=== PATIENT | male | born 1925 | race Caucasian/White ===

== ENCOUNTER 2017-02-27 15:45 | Inpatient (IN) | payer MEDICARE ==
[2017-02-27 16:15] LABS: #Eosinphils 0.1 thou/uL (0.0-0.7); #Lymphocytes 1.2 thou/uL (1.20-3.40); #Monocytes 0.7 thou/uL (0.11-0.59); #Neutrophils 4.6 thou/uL (1.40-6.50); %Basophils 0.7 % (0.0-1.0); %Eosinophils 1.7 % (0.0-10.0); %Lymphocytes 18.4 % (21.0-51.0); Hematocrit 41.2 % (42.0-52.0); Mean Platelet Volume 9.6 fL (7.4-10.4); White Blood Cell (WBC) Count 6.6 thou/uL (4.8-10.8)
[2017-02-27 16:29] LABS: Prothrombin Time 13.4 SEC (12.0-14.7)
[2017-02-27 16:44] LABS: Troponin I Less than 0.010 ng/mL (< 0.028)
[2017-02-27] MEDS ORDERED: Ondansetron ODT 4 MG TAB PO PRN (18:50)
[2017-02-27] MEDS ORDERED: hydrALAZINE 20 MG/ML VIAL SLOW IVP PRN (18:50)
[2017-02-27] MEDS ORDERED: Dextrose 5% in Water 1,000 ML IV PRN (18:50)
[2017-02-27] MEDS ORDERED: Acetaminophen 500 MG TAB PO PRN (18:50)
[2017-02-27] MEDS ORDERED: cloNIDine 0.1 MG TAB PO PRN (18:50)
[2017-02-27] MEDS ORDERED: HumaLOG 300 UNITS/3 ML VIAL SC PRN (18:50)
[2017-02-27] MEDS ORDERED: Dextrose 50% Abboject 50 ML SYRINGE SLOW IVP PRN (18:50)
[2017-02-27] MEDS ORDERED: Ondansetron HCl/PF 4 MG/2 ML Vial IVP PRN (18:50)
[2017-02-27 19:20] VITALS: BMI 27.0
[2017-02-27 19:41] LABS: Troponin I 0.012 ng/mL (< 0.028)
--- NOTE | 2017-02-27 20:16 | HP ---
DATE OF ADMISSION: 02/27/2017 PRIMARY CARE PHYSICIAN: Suhail Ragsdale MD CHIEF COMPLAINT: Blood in the stool. HISTORY OF PRESENT ILLNESS: This is an 89-year-old male, who presents to [facility] in transfer from [facility] in [place] after presenting with compl aints of blood in the stool. The patient admits to a history of antral erosions previously as well as a history of GI bleed that was suspected secondarily to colon polyps. The patient states he unde rwent EGD and colonoscopy in the last 2 to 3 years, undergoing polypectomies. The patient does admi ts to using Plavix on a daily basis, but is currently on half a tablet. The patient denied any othe r anticoagulation exposure history, fever, chills, or diarrhea. The patient noted dark blood in the stool, but not black in color. The patient states he had some constipation with hard bowel movemen ts within the last 24 to 48 hours as well as a coughing episode. The patient states he initially no vinay the blood in the stool within the last 3 days intermittently with bowel movements. The patient denied any syncope, chest pain, shortness of breath or dysuria. In the emergency room, the patient underwent general evaluation including metabolic screening with hemoglobin of 13.6. Review of the [facility] medical record shows prior value of 13.4 on 05/26/2015. The patient was referred to the ospitalist Service for evaluation. PAST MEDICAL HISTORY: 1. Prostate cancer. 2. History of cerebrovascular accident with right-sided weakness, none currently. 3. Coronary artery disease, chronic and stable. 4. History of upper gastrointestinal bleed in 2009 with small antral erosion. 5. History of colon polyps, status post polypectomy. 6. Gastroesophageal reflux. 7. Chronic kidney disease, stage 2. 8. Hypertension. 9. Diabetes mellitus type 2. PAST SURGICAL HISTORY: 1. Status post bilateral carpal tunnel release. 2. Status post appendectomy. 3. Status post bilateral cataract surgery. 4. Status post EGD in 2009 with small antral erosion. 5. Status post EGD and colonoscopy, status post polypectomy. CURRENT MEDICATIONS: Unavailable, currently will be reviewed with the family and patient upon arriv al to the medical floor. ALLERGIES: No known drug allergies. FAMILY HISTORY: No inheritable diseases per patient report. SOCIAL HISTORY: The patient is , residing in [place], [place]. [employer] . No cur rent alcohol, tobacco or illicit drug use. 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 REVIEW OF SYSTEMS: The following complete review of systems was negative, unless otherwise mentione d in the HPI or below: Constitutional: Weight loss or gain, ability to conduct usual activities. Skin: Rash, itching. Eyes: Double vision, pain. ENT/Mouth: Nose bleeding, neck stiffness, pain, tenderness. Cardiovascular: Palpitations, dyspnea on exertion, orthopnea. Respiratory: Shortness of breath, wheezing, cough, hemoptysis, fever or night sweats. Gastrointestinal: Poor appetite, abdominal pain, heartburn, nausea, vomiting, constipation, or diar myah. Genitourinary: Urgency, frequency, dysuria, nocturia. Musculoskeletal: Pain, swelling. Neurologic/Psychiatric: Anxiety, depression. Allergy/Immunologic: Skin rash, bleeding tendency. Otherwise, negative except as stated per HPI. PHYSICAL EXAMINATION: VITAL SIGNS: On admission, blood pressure 139/69, pulse 81, respiratory rate 20, temperature 97.6 d egrees Fahrenheit, O2 saturation 98% on room air. GENERAL APPEARANCE: This is an 89-year-old male, alert and oriented x3, pleasant, convers ant, in no acute distress. HEENT: Pupils are equal, round, and reactive to light and accommodation. Extraocular muscles are i ntact. No scleral icterus, no conjunctival injection. Nares patent. OP is clear. Teeth in good r epair. NECK: Supple, no cervical adenopathy, no thyromegaly, no carotid bruits, no JVD appreciated. Cervi enrrique spine is with full active and passive range of motion. No meningeal signs appreciated. CHEST: Lungs are clear to auscultation bilaterally. CARDIOVASCULAR: S1, S2 with irregular rate and rhythm. ABDOMEN: Rounded, soft, nontender, nondistended. Bowel sounds are positive in all four quadrants. There is no hepatosplenomegaly, no abdominal bruits, no rebound or guarding appreciated. EXTREMITIES: Warm and dry with good turgor. No clubbing, cyanosis or asymmetric edema appreciated. Pulses palpable distally at the dorsalis pedis, posterior tibial, and popliteal arteries bilateral ly. Capillary refill is less than 2 seconds. NEUROLOGIC: Cranial nerves II through XII are grossly intact. No focal or lateralizing signs appre ciated. PERTINENT LABORATORY AND X-RAY FINDINGS: Sodium 141, potassium 5.0, chloride 106, CO2 of 25, anion gap 15, BUN 36, creatinine 1.73 with estimated GFR of 37, glucose 185, calcium is 9.8. LFTs are wit hin normal limits. Troponin negative x1. Albumin is 3.8. CBC showed a white blood cell count 6.6, hemoglobin 13.6, hematocrit 41.2, and platelet count 131 with normal differential. PT 13.4, INR 1. 0, PTT 32.0. EKG dated 02/27/2017 by my interpretation shows atrial fibrillation with heart rate in the 80s. Normal R-wave progression noted in the precordial leads. Normal axis. No acute ST-T wav e changes appreciated. ASSESSMENT AND PLAN: 1. Gastrointestinal bleed. Unclear if upper or lower source. We will continue serial hemoglobin a nd hematocrit monitoring. Protonix 40 mg p.o. daily. We will consult Gastroenterology Service give n patient's history of prior gastrointestinal bleeding in the past. The patient may deem an appropr iate candidate for esophagogastroduodenoscopy/colonoscopy. Continue intravenous normal saline at 75 mL per hour. Avoid aspirin, Plavix, and anticoagulants. 2. Acute kidney injury on chronic kidney disease, stage 3-4. We will continue intravenous normal s long as outlined in #1. Avoid nephrotoxic agents and contrast media. Repeat creatinine in the a.m . 3. Chronic atrial fibrillation with controlled ventricular rate. We will continue supportive measu res. Continue telemetry monitoring. 4. Diabetes mellitus type 2. Insulin sliding scale for reflexive coverage. ADA diet. Accu-Cheks before meals and at bedtime. Confirm home diabetic regimen. 5. Chronic normocytic anemia. Stable currently. We will continue serial hemoglobin and hematocrit monitoring and trend. Repeat CBC in the a.m. 6. Prophylaxis. Sequential compression devices while in bed. Protonix 40 mg p.o. q.24 hours. 7. Code status is FULL. Surrogate medical decision maker is patient's spouse.
[2017-02-27] MEDS: Sodium Chloride 0.9% 1,000 ML IV SCH (20:52)
[2017-02-27 22:54] LABS: Troponin I Less than 0.010 ng/mL (< 0.028)
[2017-02-28 05:04] LABS: Anion Gap 13 mmol/L (10-20); BUN (Urea Nitrogen) 35 mg/dL (8.4-25.7); Calc. Creatinine Clearance 33 mL/min (70-130); Carbon Dioxide 22 mmol/L (23-31); Chloride 109 mmol/L (98-107); Estimated GFR-MDRD 38
[2017-02-28 05:33] LABS: Band 1 % (5-11); Hematocrit 35.4 % (42.0-52.0); Mean Platelet Volume 9.2 fL (7.4-10.4); Neutrophil 69 % (42-75); Red Blood Cell (RBC) Count 4.11 mill/uL (4.70-6.10); White Blood Cell (WBC) Count 5.7 thou/uL (4.8-10.8)
[2017-02-28] MEDS ORDERED: FLU VACC TS2017-18 (>65YR) 0.5 ML SYRINGE IM ONE (09:00)
[2017-02-28] MEDS: Sodium Chloride 0.9% 1,000 ML IV SCH (09:50)
[2017-02-28 15:23] LABS: Hematocrit 37.2 % (42.0-52.0)
[2017-02-28] MEDS ORDERED: hydrALAZINE 20 MG/ML VIAL SLOW IVP PRN ×2 (15:23)
--- NOTE | 2017-02-28 15:31 | EKG ---
Test Reason : Blood Pressure : / mmHG Vent. Rate : 080 BPM Atrial Rate : 166 BPM P-R Int : 000 ms QRS Dur : 080 ms QT Int : 382 ms P-R-T Axes : 000 003 -49 degrees QTc Int : 440 ms Atrial fibrillation Nonspecific ST and T wave abnormality Abnormal ECG Confirmed by DR. Efrain TYLER ([id number]) on 02/28/2017 3:31:40 PM Referred By: Confirmed By:DR. Efrain TYLER
--- NOTE | 2017-02-28 17:00 | CON ---
HISTORY OF PRESENT ILLNESS: The patient is an 89-year-old male, who was in his normal sta te of health until the day prior to admission when he developed some rectal bleeding. Family member s describe it is a blood with clots. He has had no nausea, vomiting, no abdominal pain, no fever or chills. No recent weight loss. He does not use NSAIDs. He is on Plavix for brainstem cerebrovasc ular accident, has been taking only half a tablet over the last few years. He had a recent episode of coughing and he said he reports he bruised his abdomen secondary to this. Patient had a GI bleed back in 2011 and it was evaluated by Dr. Krishnamurthy, at which time, he underwent an upper and lower end oscopy. Colonoscopy showed diffuse diverticula and multiple adenomas. PAST MEDICAL HISTORY: Includes: 1. Brainstem cerebrovascular accident, prostate cancer, coronary artery disease, GI bleed in 2011. 2. History of adenomatous colon polyps. 3. Gastroesophageal reflux disease. 4. Renal insufficiency. 5. Hypertension. 6. Diabetes mellitus. PAST SURGICAL HISTORY: Includes carpal tunnel, appendectomy, cataract surgery. CURRENT MEDICATIONS: Include Zestril 10 mg p.o. daily, tamsulosin 0.4 mg p.o. daily, ranitidine 150 mg p.o. b.i.d., fish oil 1 p.o. b.i.d., insulin, vitamin B12 1000 mcg p.o. daily, Plavix 75 mg 1/2 tablet p.o. at bedtime, Lipitor 20 mg p.o. daily. ALLERGIES: No known allergies. SOCIAL HISTORY: The patient does not smoke or drink. FAMILY HISTORY: Negative for GI or liver disease. REVIEW OF SYSTEMS: Constitutional: No fever or chills. No weight loss. Eyes: No blurred vision, double vision. ENT: No sore throat or earaches. Cardiovascular: No chest pain or palpitations. Pulmonary: No shortness of breath, cough, or wheezing. Gastrointestinal: See above. Genitourina ry: No hematuria or dysuria. Musculoskeletal: No joint pain or muscle weakness. Skin: No rashes . Neurologic: No numbness or seizure activity. PHYSICAL EXAMINATION: VITAL SIGNS: Temperature 97.7, pulse 77, respiratory rate 16, blood pressure 131/84. GENERAL: Shows an elderly white male, in no acute distress. HEENT: Unremarkable. NECK: Supple. CHEST: Clear. CARDIOVASCULAR: Regular rate and rhythm. ABDOMEN: Soft, nontender, without organomegaly or masses. Bowel sounds are present. RECTAL: Deferred. EXTREMITIES: Normal. LABORATORY: Shows admission hemoglobin of 13.6 with a repeat of 11.6, again another repeat showed a hemoglobin 12.3, platelet counts started at 131, is now 116. PT is 13.4 with an INR of 1.0. Chemi stries show a chloride of 109, CO2 of 22, BUN 35, creatinine 1.72, glucose 220. ASSESSMENT: 1. Gastrointestinal bleed - suspect diverticular bleed. 2. History of adenomatous colon polyps. 3. History of diffuse diverticulosis coli. 4. History of cerebrovascular accident, on half a tablet of Plavix per day. 5. Diabetes mellitus. RECOMMENDATIONS: 1. Hold Plavix. 2. Stat GI bleeding scan. 3. EGD and colonoscopy tomorrow.
--- NOTE | 2017-02-28 18:20 | NM ---
NUCLEAR MEDICINE ABDOMINAL GI BLEEDING PYROPHOSPHATE SCAN: 02/28/17 HISTORY: 89-year-old male with GI bleed with dark brown blood. Patient was injected with 27 millicuries technetium 99m tagged red blood cells intravenously. There is abnormal activity noted in the right side of the abdomen involving the right colon. IMPRESSION: Active GI bleed involving the right colon or cecum. Findings were discussed with the patient's nurse, Amrik, who indicated she would contact Dr. Park in this regard. Code CR POS: K[facility]
[2017-02-28] MEDS ORDERED: GoLYTELY 4,000 ml Bottle PO SCH (18:30)
[2017-02-28] MEDS: Tamsulosin HCl 0.4 MG CAP PO SCH (20:03)
--- NOTE | 2017-02-28 21:35 | PDOC.PN ---
- Subjective Encounter Start Date: 02/28/17 Encounter Start Time: 14:00 Patient seen and examined. No new complaints. No overnight events. Had bleeding per rectum earlier today. RLQ cramping on and off. No N/V - Objective Resuscitation Status: Resuscitation Status FULL:Full Resuscitation MAR Reviewed: Yes Vital Signs & Weight: Vital Signs (12 hours) Temp Pulse Resp BP Pulse Ox 02/28/17 19:22 97.8 F 77 18 133/69 97 02/28/17 15:15 97.7 F 77 16 131/84 96 02/28/17 10:42 97.5 F L 74 16 129/59 L 94 L Weight Weight 177 lb 9 oz I&O: 02/27/17 02/28/17 03/01/17 06:59 06:59 06:59 Intake Total 839 650 Output Total 175 Balance 664 650 Result Diagrams: 03/01/17 04:24 02/28/17 04:32 Additional Labs: Accuchecks 02/28/17 10:48 POC Glucose 172 H EKG Reviewed by me: Yes (Tele SR) Phys Exam - Physical Examination Constitutional: NAD Respiratory: no wheezing, no rhonchi Cardiovascular: RRR, no rub Gastrointestinal: soft, non-tender, positive bowel sounds Musculoskeletal: no edema Neurological: moves all 4 limbs Dx/Plan (1) LGI bleed Code(s): K92.2 - GASTROINTESTINAL HEMORRHAGE, UNSPECIFIED Status: Acute (2) Anemia due to acute blood loss Code(s): D62 - ACUTE POSTHEMORRHAGIC ANEMIA Status: Acute (3) DM2 (diabetes mellitus, type 2) Status: Chronic (4) HTN (hypertension) Code(s): I10 - ESSENTIAL (PRIMARY) HYPERTENSION Status: Chronic (5) CKD (chronic kidney disease) stage 3, GFR 30-59 ml/min Code(s): N18.3 - CHRONIC KIDNEY DISEASE, STAGE 3 (MODERATE) Status: Chronic (6) Thrombocytopenia Code(s): D69.6 - THROMBOCYTOPENIA, UNSPECIFIED Status: Chronic (7) Other issues per H&P Status: Acute - Plan cont current plan of care, DVT proph w/SCDs * Bleeding scan ordered * EGD/Colon in AM * Cont to monitor * AM labs * Cont gentle IV hydration * Plavix on hold Review of Systems - Review of Systems Respiratory: negative: Cough, Dry, Shortness of Breath, Hemoptysis, SOB with Excertion, Pleuritic Pain, Sputum, Wheezing Cardiovascular: negative: Chest Pain, Palpitations, Orthopnea, Paroxysmal Noc. Dyspnea, Edema, Light Headedness, Other - Medications/Allergies Allergies/Adverse Reactions: Allergies Allergy/AdvReac Type Severity Reaction Status Date / Time No Known Allergies Allergy Verified 02/27/17 22:57 Medications: Current Medications Acetaminophen (Tylenol) 1,000 mg PO Q6H PRN PRN Reason: Headache/Fever or Mild Pain Clonidine (Catapres) 0.1 mg PO Q4H PRN PRN Reason: Systolic BP > 180 Dextrose/Water (Dextrose 50%) 25 gm SLOW IVP PRN PRN PRN Reason: Hypoglycemia Glucagon (Glucagon) 1 mg IM PRN PRN PRN Reason: Hypoglycemia Hydralazine HCl (Apresoline) 10 mg SLOW IVP Q4H PRN PRN Reason: Systolic BP > 180 Hydralazine HCl (Apresoline) 10 mg SLOW IVP Q4H PRN PRN Reason: SBP Greater Than 180 Hydralazine HCl (Apresoline) 5 mg SLOW IVP Q4H PRN PRN Reason: SBP GREATER THAN 160 Dextrose/Water (D5w) 1,000 mls @ 0 mls/hr IV .Q0M PRN; As Directed PRN Reason: Hypoglycemia Sodium Chloride (Normal Saline 0.9%) 1,000 mls @ 75 mls/hr IV .[id number] [facility] Last Admin: 02/28/17 09:50 Dose: 1,000 mls Insulin Human Lispro (Humalog) 0 units SC .MILD SLIDING SCALE PRN PRN Reason: Mild Correctional Scale Insulin Human Lispro (Humalog) 0 units SC .BEDTIME SLIDING SC PRN PRN Reason: Bedtime Correctional Scale Ondansetron HCl (Zofran Odt) 4 mg PO Q6H PRN PRN Reason: Nausea/Vomiting Ondansetron HCl (Zofran) 4 mg IVP Q6H PRN PRN Reason: Nausea/Vomiting Pantoprazole Sodium (Protonix) 40 mg PO DAILY [facility] Last Admin: 02/28/17 09:20 Dose: 40 mg Polyethylene Glycol/Electrolytes (Golytely) 4,000 ml PO 1830 [facility] Stop: 10/27/17 23:59 Last Admin: 02/28/17 20:03 Dose: 4,000 ml Sodium Chloride (Flush - Normal Saline) 10 ml IVF Q12HR [facility] Last Admin: 02/28/17 20:04 Dose: Not Given Sodium Chloride (Flush - Normal Saline) 10 ml IVF PRN PRN PRN Reason: Saline Flush Tamsulosin HCl (Flomax) 0.4 mg PO HS [facility] Last Admin: 02/28/17 20:03 Dose: 0.4 mg
[2017-03-01] MEDS: Sodium Chloride 0.9% 1,000 ML IV SCH ×2 (01:30→12:19)
[2017-03-01 05:13] LABS: Hematocrit 32.6 % (42.0-52.0)
--- NOTE | 2017-03-01 10:32 | PDOC.PN ---
- Subjective Encounter Start Date: 03/01/17 Encounter Start Time: 09:30 Patient seen and examined. No new complaints. No overnight events. - Objective Resuscitation Status: Resuscitation Status FULL:Full Resuscitation MAR Reviewed: Yes Vital Signs & Weight: Vital Signs (12 hours) Temp Pulse Resp BP BP Pulse Ox 03/01/17 08:00 98.0 F 78 16 03/01/17 07:43 98.0 F 78 16 139/75 03/01/17 04:00 97.8 F 85 12 127/57 L 97 Weight Weight 177 lb 9 oz I&O: 02/28/17 03/01/17 03/02/17 06:59 06:59 06:59 Intake Total 839 6470 Output Total 175 Balance 664 6470 Result Diagrams: 03/01/17 04:24 02/28/17 04:32 Additional Labs: Accuchecks 03/01/17 02/28/17 02/28/17 05:51 22:04 10:48 POC Glucose 172 H 209 H 172 H EKG Reviewed by me: Yes (Tele SR) Phys Exam - Physical Examination Constitutional: NAD Respiratory: no wheezing, no rhonchi Cardiovascular: RRR, no rub Gastrointestinal: soft, non-tender, positive bowel sounds Musculoskeletal: no edema Neurological: moves all 4 limbs Dx/Plan (1) LGI bleed Code(s): K92.2 - GASTROINTESTINAL HEMORRHAGE, UNSPECIFIED Status: Acute Comment: suspected Diverticular bleed (2) Anemia due to acute blood loss Code(s): D62 - ACUTE POSTHEMORRHAGIC ANEMIA Status: Acute (3) DM2 (diabetes mellitus, type 2) Status: Chronic (4) HTN (hypertension) Code(s): I10 - ESSENTIAL (PRIMARY) HYPERTENSION Status: Chronic (5) CKD (chronic kidney disease) stage 3, GFR 30-59 ml/min Code(s): N18.3 - CHRONIC KIDNEY DISEASE, STAGE 3 (MODERATE) Status: Chronic (6) Thrombocytopenia Code(s): D69.6 - THROMBOCYTOPENIA, UNSPECIFIED Status: Chronic Comment: ? etio (7) Other issues per H&P Status: Acute - Plan cont current plan of care, DVT proph w/SCDs * EGD/Colon today * Cont to monitor * DC later today if ok with GI * Will resume Plavix when ok with GI Review of Systems - Review of Systems Respiratory: negative: Cough, Dry, Shortness of Breath, Hemoptysis, SOB with Excertion, Pleuritic Pain, Sputum, Wheezing Cardiovascular: negative: Chest Pain, Palpitations, Orthopnea, Paroxysmal Noc. Dyspnea, Edema, Light Headedness, Other Gastrointestinal: negative: Nausea, Vomiting, Abdominal Pain, Diarrhea, Constipation, Melena, Hematochezia, Other - Medications/Allergies Allergies/Adverse Reactions: Allergies Allergy/AdvReac Type Severity Reaction Status Date / Time No Known Allergies Allergy Verified 02/27/17 22:57 Medications: Current Medications Acetaminophen (Tylenol) 1,000 mg PO Q6H PRN PRN Reason: Headache/Fever or Mild Pain Clonidine (Catapres) 0.1 mg PO Q4H PRN PRN Reason: Systolic BP > 180 Dextrose/Water (Dextrose 50%) 25 gm SLOW IVP PRN PRN PRN Reason: Hypoglycemia Glucagon (Glucagon) 1 mg IM PRN PRN PRN Reason: Hypoglycemia Hydralazine HCl (Apresoline) 10 mg SLOW IVP Q4H PRN PRN Reason: Systolic BP > 180 Hydralazine HCl (Apresoline) 10 mg SLOW IVP Q4H PRN PRN Reason: SBP Greater Than 180 Hydralazine HCl (Apresoline) 5 mg SLOW IVP Q4H PRN PRN Reason: SBP GREATER THAN 160 Dextrose/Water (D5w) 1,000 mls @ 0 mls/hr IV .Q0M PRN; As Directed PRN Reason: Hypoglycemia Sodium Chloride (Normal Saline 0.9%) 1,000 mls @ 75 mls/hr IV .[id number] [facility] Last Admin: 03/01/17 01:30 Dose: 1,000 mls Insulin Human Lispro (Humalog) 0 units SC .MILD SLIDING SCALE PRN PRN Reason: Mild Correctional Scale Insulin Human Lispro (Humalog) 0 units SC .BEDTIME SLIDING SC PRN PRN Reason: Bedtime Correctional Scale Ondansetron HCl (Zofran Odt) 4 mg PO Q6H PRN PRN Reason: Nausea/Vomiting Ondansetron HCl (Zofran) 4 mg IVP Q6H PRN PRN Reason: Nausea/Vomiting Pantoprazole Sodium (Protonix) 40 mg PO DAILY [facility] Last Admin: 03/01/17 09:30 Dose: Not Given Sodium Chloride (Flush - Normal Saline) 10 ml IVF Q12HR [facility] Last Admin: 03/01/17 09:30 Dose: Not Given Sodium Chloride (Flush - Normal Saline) 10 ml IVF PRN PRN PRN Reason: Saline Flush Tamsulosin HCl (Flomax) 0.4 mg PO HS [facility] Last Admin: 02/28/17 20:03 Dose: 0.4 mg
[2017-03-01] MEDS ORDERED: Lidocaine 1% PF 5 ML VIAL ONE (10:55)
[2017-03-01] MEDS ORDERED: Propofol 200 MG/20 ML VIAL ONE (10:55)
[2017-03-01] MEDS ORDERED: Ondansetron HCl/PF 4 MG/2 ML Vial IVP PRN (11:04)
--- NOTE | 2017-03-01 14:24 | OP ---
PREOPERATIVE DIAGNOSIS: Gastrointestinal bleed. DESCRIPTION OF THE PROCEDURE: After informed consent was obtained, the patient was placed in the le ft lateral decubitus position. Anesthesia administered per the Anesthesia Department. Forward endo scope was inserted into the esophagus under direct visualization with ease and passed to the second portion of the duodenum with ease. Second portion of the duodenum and duodenal bulb were normal. T he pylorus, antrum, body, fundus, and cardia were normal. Retroflexion in the stomach was normal. Esophagus was normal throughout. No blood was seen in the upper GI tract. ASSESSMENT: Normal esophagogastroduodenoscopy. RECOMMENDATIONS: Proceed with colonoscopy. DESCRIPTION OF THE PROCEDURE: After informed consent was obtained, the patient was placed in the le ft lateral decubitus position. Anesthesia administered per the Anesthesia Department. Forward endo scope was inserted into the rectum after perianal inspection and rectal exam were normal. It was pa ssed to the cecum and into the ileum in the ilium. In the ileum, there was definitely bloody efflue nt coming from above consistent with a small bowel bleed. The cecum, ascending, transverse, descend ing, sigmoid, and rectum were all normal. No blood was seen coming from any areas in the colon. Di ffuse diverticula were noted again without active bleeding. There were 9 polyps removed from the co tasia, mostly in the ascending, transverse, and descending. These polyps all appeared benign. Polyps were either sessile and/or pedunculated. Retroflexion in the rectum was normal. ASSESSMENT: 1. Bloody ileal effluent consistent with small bowel bleed. 2. Diffuse diverticulosis coli. 3. Nine colon polyps in the ascending, transverse, and descending colon - status post polypectomy; all appeared benign. 4. Normal esophagogastroduodenoscopy. RECOMMENDATION: CT enterography in a.m.
[2017-03-01] MEDS: Tamsulosin HCl 0.4 MG CAP PO SCH (20:19)
[2017-03-01] MEDS: Lisinopril 5 MG TAB PO SCH (20:19)
[2017-03-02] MEDS: Sodium Chloride 0.9% 1,000 ML IV SCH (02:01)
[2017-03-02 04:34] LABS: #Eosinphils 0.1 thou/uL (0.0-0.7); #Lymphocytes 1.2 thou/uL (1.20-3.40); #Monocytes 0.6 thou/uL (0.11-0.59); #Neutrophils 4.6 thou/uL (1.40-6.50); %Basophils 0.2 % (0.0-1.0); %Eosinophils 1.5 % (0.0-10.0); %Monocytes 8.7 % (0.0-10.0); Hematocrit 30.6 % (42.0-52.0); Red Blood Cell (RBC) Count 3.44 mill/uL (4.70-6.10); White Blood Cell (WBC) Count 6.5 thou/uL (4.8-10.8)
[2017-03-02 04:48] LABS: Anion Gap 10 mmol/L (10-20); BUN (Urea Nitrogen) 25 mg/dL (8.4-25.7); Calc. Creatinine Clearance 44 mL/min (70-130); Calcium 8.5 mg/dL (7.8-10.44); Carbon Dioxide 22 mmol/L (23-31); Chloride 109 mmol/L (98-107); Estimated GFR-MDRD 52
[2017-03-02] MEDS: Lisinopril 5 MG TAB PO SCH ×2 (09:41→20:28)
--- NOTE | 2017-03-02 11:33 | PRG ---
DATE OF SERVICE: 03/02/2017 SUBJECTIVE: The patient is doing well. He is having no bowel movements. He is having no nausea or vomiting. He has not performed a CT scan yet. OBJECTIVE: VITAL SIGNS: Temperature 98.0, pulse 92, respiratory rate 16, blood pressure 141/67. CHEST: Clear. CARDIOVASCULAR: Regular rate and rhythm. ABDOMEN: Soft, nontender without organomegaly or masses. LABORATORY DATA: Shows a hemoglobin 10.3, hematocrit 30.6 and platelet count 102. ASSESSMENT: 1. Gastrointestinal bleed -- most likely small bowel source. 2. Multiple colon polyps. 3. Anemia secondary to gastrointestinal blood loss. 4. Thrombocytopenia secondary to consumption. RECOMMENDATIONS: 1. Continue to hold Plavix. 2. CT enterography today. 3. Continue to monitor hemoglobin and hematocrit.
[2017-03-02] MEDS: HumaLOG 300 UNITS/3 ML VIAL SC PRN (12:33)
--- NOTE | 2017-03-02 13:39 | CT ---
ABDOMEN CT WITH AND WITHOUT CONTRAST PELVIC CT WITH AND WITHOUT CONTRAST: Date: 03/02/17 HISTORY: Small bowel hemorrhage. COMPARISON: None. CORRELATION: Stone protocol CT dated 12/21/12. TECHNIQUE: A CT exam of abdomen and pelvis was performed with and without contrast. Oral contrast was administe red. Note, the patient did not drink it through a straw. Sagittal and coronal reformatted images sub mitted for interpretation. FINDINGS: ABDOMEN CT: Dependent atelectatic changes. Heart size is within normal limits. No significant pericardial fluid. Coronary artery calcifications are identified. The descending thoracic aorta and abdominal aorta calero ve a normal caliber. No periaortic fat stranding. Symmetric attenuation of psoas muscles. Gallbladder demonstrates gallstones. No evidence of cholecystitis. Liver, spleen, pancreas, and adrenal glands have appropriate enhancement. Symmetric enhancement of the kidneys. Nonobstructing punctate calcification in the right renal dc x. Bilaterally, no obstructive uropathy. No mesenteric mass, lymphadenopathy, or free air. Gastric mucosa and multiple normal caliber small bowel loops are noted. Ileocecal junction is normal . Appendix is not appreciated. There is fecal material in a nondistended, nondilated colon. There ar e extensive diverticula in the distal descending colon, proximal to mid sigmoid colon. There is infl ammatory change involving the proximal sigmoid colon suggesting a small focus of diverticulitis. The re is adjacent inflammatory change of the sigmoid mesocolon with a trace amount of fluid in the left paracolic gutter. PELVIC CT: No mass, lymphadenopathy, free air, or free fluid. Urinary bladder is unremarkable. There are no osteoblastic or osteolytic lesions. IMPRESSION: 1. Normal small bowel enterography. No obvious small bowel masses. 2. Sigmoid colon diverticulitis without associated perforation or abscess. POS: [facility]
--- NOTE | 2017-03-02 14:25 | PDOC.PN ---
- Subjective Encounter Start Date: 03/02/17 Encounter Start Time: 14:23 Patient seen at bedside. No further bloody stools, no overnight events, no new complaints. - Objective Resuscitation Status: Resuscitation Status FULL:Full Resuscitation MAR Reviewed: Yes Vital Signs & Weight: Vital Signs (12 hours) Temp Pulse Resp BP BP BP BP 03/02/17 09:41 92 141/67 H 03/02/17 08:20 98.0 F 92 16 112/55 L 111/55 L 141/67 H 03/02/17 07:20 98.7 F 78 20 03/02/17 04:12 98.7 F 78 20 110/62 Pulse Ox 03/02/17 09:41 03/02/17 08:20 97 03/02/17 07:20 03/02/17 04:12 95 Weight Weight 181 lb I&O: 03/01/17 03/02/17 03/03/17 06:59 06:59 06:59 Intake Total 6470 2459 638 Output Total 800 0 Balance 6470 1659 638 Result Diagrams: 03/02/17 04:17 03/02/17 04:17 Additional Labs: Accuchecks 03/02/17 03/02/17 03/01/17 12:31 04:17 17:06 POC Glucose 173 H 175 H 171 H 02/28/17 06:05 POC Glucose 200 H Phys Exam - Physical Examination Constitutional: NAD HEENT: moist MMs Neck: no JVD Respiratory: clear to auscultation bilateral Cardiovascular: irregular Gastrointestinal: soft Musculoskeletal: pulses present Neurological: moves all 4 limbs Psychiatric: normal affect, A&O x 3 Dx/Plan (1) Atrial fibrillation Code(s): I48.91 - UNSPECIFIED ATRIAL FIBRILLATION Status: Acute (2) DM2 (diabetes mellitus, type 2) Status: Chronic (3) HTN (hypertension) Code(s): I10 - ESSENTIAL (PRIMARY) HYPERTENSION Status: Chronic (4) Gastrointestinal bleed Code(s): K92.2 - GASTROINTESTINAL HEMORRHAGE, UNSPECIFIED Status: Acute - Plan cont current plan of care, plan discussed w/ family, out of bed/ambulate, DVT proph w/SCDs * Continue to monitor H and H. * For CT enterography today/ Follow up results * PPI * In regards to atrial fibrillation, no reported history. He is rate controlled at this time. Check echocardiogram. Will not start anticoagulation in light current suspected GI Bleed. Consult cardiology. * Daily Labs * Change to inpatient
[2017-03-02] MEDS: Tamsulosin HCl 0.4 MG CAP PO SCH (20:29)
[2017-03-03 09:12] LABS: Hematocrit 28.7 % (42.0-52.0)
[2017-03-03 09:22] LABS: Anion Gap 10 mmol/L (10-20); BUN (Urea Nitrogen) 24 mg/dL (8.4-25.7); Calc. Creatinine Clearance 41 mL/min (70-130); Calcium 8.3 mg/dL (7.8-10.44); Carbon Dioxide 23 mmol/L (23-31); Chloride 108 mmol/L (98-107); Estimated GFR-MDRD 47
--- NOTE | 2017-03-03 09:48 | PDOC.PN ---
- Subjective Encounter Start Date: 03/03/17 Encounter Start Time: 09:47 Patient seen and examined. No new complaints. No overnight events. No hematochezia. - Objective MAR Reviewed: Yes Vital Signs & Weight: Vital Signs (12 hours) Temp Pulse Resp BP BP Pulse Ox 03/03/17 08:00 97.9 F 71 18 116/65 96 03/03/17 04:00 97.9 F 81 16 108/56 L 93 L Weight Weight 181 lb 6.4 oz I&O: 03/02/17 03/03/17 03/04/17 06:59 06:59 06:59 Intake Total 368 Balance 368 Result Diagrams: 03/03/17 04:55 03/03/17 04:55 Additional Labs: Accuchecks 03/03/17 03/02/17 03/02/17 06:15 20:17 16:24 POC Glucose 169 H 209 H 152 H Radiology Reviewed by me: No (CT ent - neg) EKG Reviewed by me: Yes (Tele Afib) Phys Exam - Physical Examination Constitutional: NAD Respiratory: no wheezing, no rhonchi Cardiovascular: RRR, no rub Gastrointestinal: soft, non-tender, positive bowel sounds Musculoskeletal: no edema Neurological: non-focal, moves all 4 limbs Dx/Plan (1) LGI bleed Code(s): K92.2 - GASTROINTESTINAL HEMORRHAGE, UNSPECIFIED Status: Acute Comment: suspected Diverticular bleed (2) Anemia due to acute blood loss Code(s): D62 - ACUTE POSTHEMORRHAGIC ANEMIA Status: Acute Comment: GI blood loss (3) DM2 (diabetes mellitus, type 2) Status: Chronic (4) HTN (hypertension) Code(s): I10 - ESSENTIAL (PRIMARY) HYPERTENSION Status: Chronic (5) CKD (chronic kidney disease) stage 3, GFR 30-59 ml/min Code(s): N18.3 - CHRONIC KIDNEY DISEASE, STAGE 3 (MODERATE) Status: Chronic (6) Thrombocytopenia Code(s): D69.6 - THROMBOCYTOPENIA, UNSPECIFIED Status: Chronic Comment: ? etio (7) Other issues per H&P Status: Acute (8) Atrial fibrillation Code(s): I48.91 - UNSPECIFIED ATRIAL FIBRILLATION Status: Acute Qualifiers: Atrial fibrillation type: unspecified Qualified Code(s): I48.91 - Unspecified atrial fibrillation - Plan cont current plan of care, plan discussed w/ family, DVT proph w/SCDs * Await Cardiology input * Plavix on hold * Cont to monitor * GI following * AM labs * DC when ok with consultants * HHC at dc * Hold Lisinopril Review of Systems - Medications/Allergies Allergies/Adverse Reactions: Allergies Allergy/AdvReac Type Severity Reaction Status Date / Time No Known Allergies Allergy Verified 02/27/17 22:57 Medications: Current Medications Acetaminophen (Tylenol) 1,000 mg PO Q6H PRN PRN Reason: Headache/Fever or Mild Pain Clonidine (Catapres) 0.1 mg PO Q4H PRN PRN Reason: Systolic BP > 180 Dextrose/Water (Dextrose 50%) 25 gm SLOW IVP PRN PRN PRN Reason: Hypoglycemia Glucagon (Glucagon) 1 mg IM PRN PRN PRN Reason: Hypoglycemia Hydralazine HCl (Apresoline) 10 mg SLOW IVP Q4H PRN PRN Reason: Systolic BP > 180 Hydralazine HCl (Apresoline) 10 mg SLOW IVP Q4H PRN PRN Reason: SBP Greater Than 180 Hydralazine HCl (Apresoline) 5 mg SLOW IVP Q4H PRN PRN Reason: SBP GREATER THAN 160 Dextrose/Water (D5w) 1,000 mls @ 0 mls/hr IV .Q0M PRN; As Directed PRN Reason: Hypoglycemia Insulin Human Lispro (Humalog) 0 units SC .MILD SLIDING SCALE PRN PRN Reason: Mild Correctional Scale Last Admin: 03/02/17 12:33 Dose: 2 unit Insulin Human Lispro (Humalog) 0 units SC .BEDTIME SLIDING SC PRN PRN Reason: Bedtime Correctional Scale Ondansetron HCl (Zofran Odt) 4 mg PO Q6H PRN PRN Reason: Nausea/Vomiting Ondansetron HCl (Zofran) 4 mg IVP Q6H PRN PRN Reason: Nausea/Vomiting Pantoprazole Sodium (Protonix) 40 mg PO DAILY [facility] Last Admin: 03/03/17 08:48 Dose: 40 mg Sodium Chloride (Flush - Normal Saline) 10 ml IVF Q12HR MYRIAM Last Admin: 03/03/17 08:49 Dose: 10 ml Sodium Chloride (Flush - Normal Saline) 10 ml IVF PRN PRN PRN Reason: Saline Flush Tamsulosin HCl (Flomax) 0.4 mg PO HS [facility] Last Admin: 03/02/17 20:29 Dose: 0.4 mg
[2017-03-03] MEDS: HumaLOG 300 UNITS/3 ML VIAL SC PRN (17:35)
--- NOTE | 2017-03-03 18:38 | CON ---
DATE OF SERVICE: 03/03/2017 TYPE OF CONSULTATION: Cardiology Consultation. REFERRING PHYSICIAN: Eduardo Davis M.D. REASON FOR CONSULTATION: New onset atrial fibrillation. HISTORY OF PRESENT ILLNESS: Mr. Stein is an 89-year-old gentleman who was admitted on 7 with lower GI bleeding. His workup has shown evidence of small bowel bleeding and multiple colon polyps, all of which were excised. His hemoglobin has remained stable and he reports improvement in the character of his stool, but continues to have bright red blood per rectum with bowel movement, the last of which was approximately 2 hours ago today. His rhythm changed earlier to A. fib with controlled ventricular response and Cardiology was consult ed for recommendations. PAST MEDICAL HISTORY: 1. Recent lower GI bleeding. 2. Prostate cancer. 3. History of CVA with residual right-sided weakness. 4. Coronary artery disease. 5. Colon polyp, status post polypectomy. 6. GERD. 7. Chronic kidney disease stage 2. 8. Hypertension. 9. Type 2 diabetes mellitus. PAST SURGICAL HISTORY: 1. Bilateral carpal tunnel release. 2. Appendectomy. 3. Bilateral cataract surgery. 4. EGD. 5. Colonoscopy, status post polypectomy. ALLERGIES: No known drug allergies. SOCIAL HISTORY: He is , resides in [place], is an [employer] . He denies illicit drug use, tobacco use or illicit drug use. FAMILY HISTORY: Negative with respect to premature atherosclerosis. CURRENT MEDICATIONS: At home include, 1. Lipitor 20 mg daily. 2. Plavix 75 mg daily. 3. Levemir insulin 75 units subcu q.a.m., 35-55 units subcu q.p.m. 4. Lisinopril 10 mg b.i.d. 5. Ranitidine 150 mg b.i.d. 6. Flomax 0.4 mg daily. REVIEW OF SYSTEMS: As per the history of present illness. Remainder of 12 system review is negativ e. PHYSICAL EXAMINATION: VITAL SIGNS: Blood pressure 134/62, pulse 89 and irregularly irregular, respiratory rate 17 and non labored, temperature 97.8, oxygen saturation 96% on room air. GENERAL: This is a well-developed, well-nourished 89-year-old gentleman in no acute distr ess. He is alert and oriented x4. Answers questions appropriately. HEENT: Head is atraumatic, normocephalic. Pupils are equally round and reactive. Sclerae and conj unctivae are clear. There are no oral lesions. NECK: Supple, no JVD, thyromegaly, or carotid bruits. CHEST: Symmetrical inspiration and expiration. HEART: Irregularly irregular with no murmur, S3 or S4. PMI nondisplaced. Not enlarged. LUNGS: Clear to auscultation in all rivas. No adventitious sounds appreciated. ABDOMEN: Soft, nontender, nondistended, without mass or organomegaly. Bowel sounds are present in all 4 quadrants. No flank bruits auscultated. EXTREMITIES: 2+ pulses noted bilaterally in the upper and lower extremities. Strength 5/5 bilatera lly. No clubbing, cyanosis or significant edema. NEUROLOGIC: Grossly intact with no focal motor deficits. DATABASE: EKG reveals atrial fibrillation with controlled ventricular rate, nonspecific T changes. LABORATORY DATA: CBC reveals a white count of 6, H\T\H of 10 and 30, platelet count 102,000, differ ential white blood cells normal, red cell indices normocytic. Coagulation studies are normal. Chem istries normal electrolytes, BUN and creatinine of 24 and 1.4, GFR is estimated at 47, glucose 168. TSH is 7.2. ASSESSMENT: 1. Status post lower gastrointestinal bleed, hemoglobin and hematocrit stable. 2. New onset atrial fibrillation with controlled ventricular rate. 3. Hypertension, controlled. 4. Chronic kidney disease stage 3. 5. Type 2 diabetes mellitus, managed with insulin. 6. Coronary artery disease, on medical therapy. 7. Dyslipidemia, on therapy. RECOMMENDATIONS: 1. From a cardiac standpoint, he is stable. His ventricular rate response is controlled currently, but we will add low dose of metoprolol at 12.5 mg b.i.d. Continue his lisinopril as currently pres cribed. He will follow up with me in the outpatient setting in a couple of weeks as he recovers fro m his current hospitalization. 2. We will evaluate in the outpatient setting for underlying progressive coronary artery disease; i nitin was diagnosed over 20 years ago with mild nonobstructive disease that has been medically managed w dwain over the course of the two decades. He has no symptoms currently of obstructive disease, but wi th new onset atrial fibrillation an evaluation must be pursued to evaluate for obstructive disease a s the underlying driving force. 3. He is cleared from a cardiovascular standpoint to be discharged home tomorrow with follow up in the outpatient setting in 2 weeks. I appreciate the opportunity to participate.
--- NOTE | 2017-03-03 19:02 | PRG ---
DATE OF SERVICE: 03/03/2017 HISTORY OF PRESENT ILLNESS: Mr. Kiser is tolerating a diet. His daughter and the nurse also n ote that he had a bowel movement last night. There was some blood. The daughter says it was bright red, there was no clot. Apparently he had to have a bowel movement this morning, but states he onl y passed gas. Neither the nurse nor the daughter saw it. He said he flushed it before they went in . He has been feeling well. He has been found to have atrial fibrillation, was transferred to [facility]. He has been evaluated for that. He denies abdominal pain or bleeding. NEW RESULTS SINCE YESTERDAY: CT enterography was reported normal. PHYSICAL EXAMINATION: GENERAL: He is alert and oriented to person, place and time. VITAL SIGNS: Temperature is 97, pulse 71, blood pressure 160/65. LUNGS: Clear. HEART: Regular rate and rhythm without clicks or murmurs. ABDOMEN: Soft, nontender. Hemoglobin on presentation was around 13.6, today it is 9.6 yesterday it was 10.3. EXTREMITIES: BUN is 24, creatinine is 1.42. Electrolytes are normal. ASSESSMENT: Acute gastrointestinal bleed of unclear etiology. This has happened in the past. He d id have EGD and colonoscopy with several polyps removed basically benign. No overt bleeding site wa s identified. His tagged red blood cell scan showed active bleeding in the right colon or cecum acc ording to the radiologist; however, Dr. Park felt on colonoscopy that there was some blood coming ou t of the terminal ileum. He has bad previous episodes of bleeding in 2009 and 2011 that showed a no rmal EGD and colonoscopy in 2009 except for 4 polyps in the right colon 5-10 mm in size at that time as well as coffee ground material and some distal small bowel. RECOMMENDATIONS: Advance diet as tolerated. If patient remains stable without any signs of bleedin g, consider discharge in the next 24-48 hours. The patient to hold anticoagulation for another 5-10 days before considering restarting.
[2017-03-03] MEDS: Tamsulosin HCl 0.4 MG CAP PO SCH (20:29)
[2017-03-04 05:54] LABS: Anion Gap 8 mmol/L (10-20); BUN (Urea Nitrogen) 27 mg/dL (8.4-25.7); Calc. Creatinine Clearance 41 mL/min (70-130); Calcium 8.4 mg/dL (7.8-10.44); Carbon Dioxide 25 mmol/L (23-31); Chloride 109 mmol/L (98-107); Estimated GFR-MDRD 48; Magnesium 1.8 mg/dL (1.6-2.6)
[2017-03-04 05:56] LABS: Hematocrit 28.7 % (42.0-52.0)
[2017-03-04 09:47] LABS: #Eosinphils 0.1 thou/uL (0.0-0.7); #Lymphocytes 1.1 thou/uL (1.20-3.40); #Monocytes 0.5 thou/uL (0.11-0.59); #Neutrophils 3.7 thou/uL (1.40-6.50); %Basophils 0.6 % (0.0-1.0); %Eosinophils 2.1 % (0.0-10.0); %Lymphocytes 19.9 % (21.0-51.0); Hematocrit 30.7 % (42.0-52.0); Mean Platelet Volume 8.2 fL (7.4-10.4); Red Blood Cell (RBC) Count 3.46 mill/uL (4.70-6.10); White Blood Cell (WBC) Count 5.5 thou/uL (4.8-10.8)
--- NOTE | 2017-03-04 10:37 | PDOC.CTH ---
Cardiology Progress Note - Subjective Still with some rectal bleeding. H/H mildly decreased today. No CV symptoms. ROS negative otherwise. - Objective Vital Signs Temp Pulse Resp BP BP BP BP 03/04/17 08:00 97.2 F L 75 20 138/64 128/58 L 128/62 144/67 H 03/04/17 04:00 97.3 F L 84 16 145/69 H 03/03/17 23:54 98.3 F 74 16 132/60 Pulse Ox 03/04/17 08:00 95 03/04/17 04:00 96 03/03/17 23:54 94 L Weight 177 lb 03/03/17 03/04/17 03/05/17 06:59 06:59 06:59 Intake Total 368 970 Balance 368 970 - Physical Examination General/Neuro: alert & oriented x3, NAD Neck: carotid US brisk, no JVD present Lungs: CTA, unlabored respirations Heart: PMI normal, other: (irregular) Abdomen: no HSM, NT/ND, soft Extremities: other: (2+ pulses, no edema) Other PE findings: Neuro: no focal motor defs - Telemetry Telemetry Rhythm: AF with CVR\ - Labs Result Diagrams: 03/04/17 09:39 03/04/17 04:57 Troponin/CKMB CK-MB (CK-2) 3.0 ng/mL (0-6.6) 02/27/17 16:06 Troponin I Less than 0.010 ng/mL (< 0.028) 02/27/17 22:17 - Assessment/Plan 1. AF, new onset: will add low dose metoprolol for rate control with activity. No OAC for now. Outpatient stress testing when recovered from hospitalization. 2. LGIB: monitor per GI. 3. HTN: controlled. Continue current meds.
[2017-03-04] MEDS ORDERED: Metoprolol Tartrate 25 MG TAB PO SCH (10:45)
[2017-03-04] MEDS: HumaLOG 300 UNITS/3 ML VIAL SC PRN ×2 (11:32→18:03)
--- NOTE | 2017-03-04 11:46 | PDOC.PN ---
- Subjective Encounter Start Date: 03/04/17 Encounter Start Time: 08:00 CC: Anemia sub; Pt still c/o dark bloody stool - Objective Vital Signs & Weight: Vital Signs (12 hours) Temp Pulse Resp BP BP BP BP 03/04/17 08:00 97.2 F L 75 20 138/64 128/58 L 128/62 144/67 H 03/04/17 04:00 97.3 F L 84 16 145/69 H 03/03/17 23:54 98.3 F 74 16 132/60 Pulse Ox 03/04/17 08:00 95 03/04/17 04:00 96 03/03/17 23:54 94 L Weight Weight 177 lb I&O: 03/03/17 03/04/17 03/05/17 06:59 06:59 06:59 Intake Total 368 970 Balance 368 970 Result Diagrams: 03/04/17 09:39 03/04/17 04:57 Additional Labs: Accuchecks 03/04/17 03/03/17 03/03/17 05:52 19:56 15:26 POC Glucose 215 H 233 H 220 H Phys Exam - Physical Examination Constitutional: NAD HEENT: moist MMs Neck: no JVD Respiratory: no wheezing, no rales, no rhonchi Cardiovascular: RRR, no significant murmur, no rub Gastrointestinal: soft, non-tender no guarding, no rebound tenderness Musculoskeletal: no edema Neurological: non-focal Psychiatric: normal affect Skin: no rash Dx/Plan - Plan Pt is 89 yrs old male 1) LGI bleed Code(s): K92.2 - GASTROINTESTINAL HEMORRHAGE, UNSPECIFIED Status: Acute Comment: suspected Diverticular bleed (2) Anemia due to acute blood loss Code(s): D62 - ACUTE POSTHEMORRHAGIC ANEMIA Status: Acute Comment: GI blood loss (3) DM2 (diabetes mellitus, type 2) Status: Chronic (4) HTN (hypertension) Code(s): I10 - ESSENTIAL (PRIMARY) HYPERTENSION Status: Chronic (5) CKD (chronic kidney disease) stage 3, GFR 30-59 ml/min Code(s): N18.3 - CHRONIC KIDNEY DISEASE, STAGE 3 (MODERATE) Status: Chronic (6) Thrombocytopenia Code(s): D69.6 - THROMBOCYTOPENIA, UNSPECIFIED Status: Chronic Comment: ? etio (7) Other issues per H&P Status: Acute (8) Atrial fibrillation Code(s): I48.91 - UNSPECIFIED ATRIAL FIBRILLATION Status: Acute Qualifiers: Atrial fibrillation type: unspecified Qualified Code(s): I48.91 - Unspecified atrial fibrillation - Plan cont current plan of care, plan discussed w/ family, DVT proph w/SCDs * Reviewed cardio note, Need outpt follow up * Plavix on hold * GI following. HGB fluctuating. still having blood stools. Recheck H&H now * AM labs * dc in am if hgb remain stable * continue current treatment D/W pt & Pt daughter at bedside
[2017-03-04] MEDS ORDERED: FLU VACC TS2017-18 (>65YR) 0.5 ML SYRINGE IM ONE (21:00)
[2017-03-04] MEDS: Tamsulosin HCl 0.4 MG CAP PO SCH (22:34)
[2017-03-04] MEDS: Metoprolol Tartrate 25 MG TAB PO SCH (22:34)
--- NOTE | 2017-03-05 03:48 | PRG ---
DATE OF SERVICE: 03/04/2017 OBJECTIVE: VITAL SIGNS: Temperature is 98, respiration is 18, pulse 64, blood pressure 112/68. LUNGS: Clear. HEART: Regular rate and rhythm. ABDOMEN: Soft, nontender . LABORATORY STUDIES: White count is 5.5, hemoglobin is 10, platelet count is 113. ASSESSMENT: GI bleed seemingly resolving. BUN and creatinine this morning is 27 and 1.39. He is o ff his anticoagulation. Likely this is diverticular bleeding. A small bowel bleeding source is als o possible, would monitor for another 24 hours. If hemoglobin is stable and blood stools become mor e brown, then he can go home tomorrow. If not, we may need to investigate further small bowel.
[2017-03-05 05:52] LABS: Anion Gap 10 mmol/L (10-20); BUN (Urea Nitrogen) 28 mg/dL (8.4-25.7); Calc. Creatinine Clearance 38 mL/min (70-130); Calcium 9.2 mg/dL (7.8-10.44); Carbon Dioxide 25 mmol/L (23-31); Chloride 106 mmol/L (98-107); Estimated GFR-MDRD 44
[2017-03-05 06:03] LABS: #Eosinphils 0.2 thou/uL (0.0-0.7); #Lymphocytes 1.2 thou/uL (1.20-3.40); #Monocytes 0.6 thou/uL (0.11-0.59); %Basophils 0.7 % (0.0-1.0); %Eosinophils 2.5 % (0.0-10.0); %Lymphocytes 19.7 % (21.0-51.0); %Monocytes 9.9 % (0.0-10.0); Hematocrit 31.7 % (42.0-52.0); Mean Platelet Volume 8.9 fL (7.4-10.4); Red Blood Cell (RBC) Count 3.55 mill/uL (4.70-6.10)
[2017-03-05] MEDS: Metoprolol Tartrate 25 MG TAB PO SCH (09:48)
[2017-03-05] MEDS: HumaLOG 300 UNITS/3 ML VIAL SC PRN (12:26)
[2017-03-05 12:39] VITALS: BP 150/69; TEMP 97.9
--- NOTE | 2017-03-05 13:29 | PDOC.CTH ---
Cardiology Progress Note - Subjective No new issues. Rates remain controlled with AF. No CV complaints. ROS otherwise negative. - Objective Vital Signs Temp Pulse Resp BP BP Pulse Ox 03/05/17 12:37 97.9 F 67 16 150/69 H 97 03/05/17 07:46 97.4 F L 60 16 127/60 98 03/05/17 04:25 98.1 F 59 L 16 129/60 96 Weight 177 lb 03/04/17 03/05/17 03/06/17 06:59 06:59 06:59 Intake Total 970 5101 Output Total 850 Balance 970 4251 - Physical Examination General/Neuro: alert & oriented x3, NAD Neck: carotid US brisk, no JVD present Lungs: CTA, unlabored respirations Heart: PMI normal, RRR Abdomen: no HSM, NT/ND, soft Extremities: other: (2+ pulses, no edema) Other PE findings: Neuro: no focal motor defs - Telemetry Telemetry Rhythm: AF with CVR - Labs Result Diagrams: 03/05/17 05:23 03/05/17 05:23 Troponin/CKMB CK-MB (CK-2) 3.0 ng/mL (0-6.6) 02/27/17 16:06 Troponin I Less than 0.010 ng/mL (< 0.028) 02/27/17 22:17 - Assessment/Plan 1. AF, new onset: Continue metoprolol for rate control. No OAC for now. Outpatient stress testing when recovered from hospitalization. 2. LGIB: monitor per GI. H/H stable currently. 3. HTN: controlled. Continue current meds.
--- NOTE | 2017-03-05 14:09 | DIS ---
DATE OF ADMISSION: 02/27/2017 DATE OF DISCHARGE: 03/05/2017 DISCHARGE DIAGNOSES: 1. Acute gastrointestinal bleed, questionable small bowel source, stable. 2. Acute on chronic normocytic anemia secondary to acute blood loss, stable. 3. Thrombocytopenia secondarily to Plavix, improved. 4. Acute kidney injury on chronic kidney disease stage 3. 5. Hypertension, stable. 6. Chronic atrial fibrillation with controlled rate. No anticoagulation due to gastrointestinal bl eeding. 7. Diabetes mellitus type 2, insulin requiring. CONSULTATIONS: Dr. Patel Park with Cardiology Service. Dr. Jose Alberto Park and Dr. Krishnamurthy with GI Servic e. PERTINENT LAB AND X-RAY FINDINGS: Creatinine ranged between 1.31-1.72 with estimated GFR ranging be tween 38-52. Magnesium 1.8. TSH 7.20. CBC showed a hemoglobin ranging between 9.4-13.6, platelet count ranged between 98-146. Stool Hemoccult 02/27/2017, positive x1. GI bleeding scan dated 02/28, showed active gastrointestinal bleeding involving the right colon and cecum. EGD/colonoscopy dated 03/01/2017, showed bloody ileal effluent consistent with small bowel bleed. Diffuse divertic ulosis coli. Nine colon polyps in the ascending, transverse, and descending colon, status post poly pectomy. Normal esophagogastroduodenoscopy. CT of the abdomen and pelvis dated 03/02/2017, showed normal small bowel enterography. Sigmoid colon diverticulitis without perforation or abscess. [place] n polyp pathology 03/01/2017, showed tubular adenomas and hyperplastic polyp of the ascending colon. No high grade dysplasia or malignancy. HOSPITAL COURSE: Patient was admitted to the telemetry unit after initially presenting with GI blee ding. The patient was placed on Protonix as well as intravenous normal saline and discontinued on P lavix. The patient was evaluated by the GI Service, undergoing serial hemoglobin assessment showing a decreasing trend from initial value of 13.6 at admission to a trough of 9.4, 03/04/2017. The pat ient underwent EGD and colonoscopy with findings as noted previously, likely small bowel bleeding so urce in conjunction with possible colonic source. The patient underwent removal of 9 colon polyps s howing no evidence of high grade dysplasia or malignancy. The patient was recommended to continue o ff anticoagulation therapy indefinitely. Patient did not require transfusion of packed red blood ce lls. His hemoglobin is stabilized in the 10 range at the time of discharge. The patient was also n oted on telemetry monitoring with atrial fibrillation with controlled rate and initiated on metoprol ol 12.5 mg b.i.d. No anticoagulation recommended due to GI bleeding. Overall, the patient did steve in clinically stable throughout the remainder of the hospital course, tolerating regular oral intake , ambulating without assistance or difficulty and ready for discharge on 03/05/2017. DISCHARGE MEDICATIONS: 1. Acetaminophen 325 mg 1 tab p.o. q.6 hours p.r.n. 2. Lipitor 20 mg one tablet p.o. daily. 3. Vitamin B12 1000 mcg p.o. daily. 4. Levemir 75 units subcutaneously q.a.m. and 35-55 units subcutaneously at bedtime. 5. Zestril 10 mg p.o. b.i.d. 6. Metoprolol tartrate 12.5 mg p.o. b.i.d. 7. [place] 3 fatty acids 1 capsule p.o. b.i.d. 8. Ranitidine 150 mg p.o. b.i.d. 9. Flomax 0.4 mg p.o. daily. FOLLOWUP: The patient may follow up with his primary care provider, Dr. Suhail Ragsdale within 7 days of discharge. The patient will follow up with Dr. Krishnamurthy with GI service in 10 days after discharge . CONDITION ON DISCHARGE: Stable. ACTIVITY: Ad shobha. DIET: Heart healthy and ADA. CODE STATUS: FULL. DISPOSITION: Home on 03/05/2017. Total time preparing and coordinating discharge is 33 minutes.
== END 2017-03-05 15:30 | disposition home health service (06) | DRG 378 ==
LOC: ERS 15:45 → 2SW 16:59 → OBSVTOIN 03-02 14:31 → 2NO 03-02 16:11
PROVIDERS: ADMIT Family Medicine; ATTEND Family Medicine
PROC: 0DJ08ZZ Inspection of Upper Intestinal Tract, Via Natural or Artificial Opening Endoscopic (ICD-10-PCS; principal; 2017-03-01)
PROC: 0DBK8ZX Excision of Ascending Colon, Via Natural or Artificial Opening Endoscopic, Diagnostic (ICD-10-PCS; 2017-03-01)
PROC: 0DBL8ZX Excision of Transverse Colon, Via Natural or Artificial Opening Endoscopic, Diagnostic (ICD-10-PCS; 2017-03-01)
PROC: 0DBM8ZX Excision of Descending Colon, Via Natural or Artificial Opening Endoscopic, Diagnostic (ICD-10-PCS; 2017-03-01)
DX: K57.31 Diverticulosis of large intestine without perforation or abscess with bleeding (principal); D62 Acute posthemorrhagic anemia; N17.9 Acute kidney failure, unspecified; E11.22 Type 2 diabetes mellitus with diabetic chronic kidney disease; D69.6 Thrombocytopenia, unspecified; I48.2 Chronic atrial fibrillation; N18.3 Chronic kidney disease, stage 3 (moderate); D12.2 Benign neoplasm of ascending colon; D12.4 Benign neoplasm of descending colon; D12.3 Benign neoplasm of transverse colon; K63.5 Polyp of colon; I12.9 Hypertensive chronic kidney disease with stage 1 through stage 4 chronic kidney disease, or unspecified chronic kidney disease; I25.10 Atherosclerotic heart disease of native coronary artery without angina pectoris; K21.9 Gastro-esophageal reflux disease without esophagitis; Z85.46 Personal history of malignant neoplasm of prostate; Z79.02 Long term (current) use of antithrombotics/antiplatelets; E78.5 Hyperlipidemia, unspecified; Z79.4 Long term (current) use of insulin; Z86.73 Personal history of transient ischemic attack (TIA), and cerebral infarction without residual deficits
CPT/HCPCS: 36415; 36416; 74178; 78278; 80048; 82274; 82550; 82553; 83735; 84443; 84484; 85007; 85014; 85018; 85025; 85027; 85049; 85610; 85730; 86850; 86900; 86901; 88305; 90471; 90682; 93005; 93306; A4216; A9604; G0008; J2001; J2704; Q2036